=== PATIENT | female | born 1960 | race African-American/Black ===

== ENCOUNTER 2021-10-30 09:48 | Emergency (ER) | payer BC ==
[~2021-10-30] VITALS: Ht 170.2 cm; Wt 79.4 kg
[2021-10-30 10:41] VITALS: BP 118/96
[2021-10-30] MEDS ORDERED: NAPROSYN500 MG PO (11:34)
== END 2021-10-30 12:51 | disposition home or self-care (01) ==
LOC: ER 09:48
DX: U07.1 COVID-19 (principal); I10 Essential (primary) hypertension

== ENCOUNTER → 2021-11-19 | Outpatient (CLI) | payer BC ==
[~2021-11-19] MED LIST: CARVEDILOL12.5 MG PO; CATAPRES0.2 MG PO; LOSARTAN POTAS100 MG PO; MULTIVITAMINS1 EAC6 PO; NAPROSYN500 MG PO; TYLENOL325 M1 PO
[2021-11-19 11:08] LABS: HEMATOCRIT 39.3 % (37.0-47.0); HEMOGLOBIN 13.2 gm/dL (12.0-15.0); MCH 30.5 pg (26.0-34.0); MCHC 33.7 g/dL (28.0-37.0); MCV 90.5 fL (80.0-100.0); RBC 4.34 mil/uL (4.20-5.00); RDW 15.3 % (10.5-14.5); URINE BILIRUBIN NEGATIVE (Negative); URINE BLOOD NEGATIVE (Negative); URINE CLARITY CLEAR; URINE COLOR YELLOW; URINE GLUCOSE-RANDOM* NEGATIVE (Negative); URINE KETONES NEGATIVE (Negative); URINE LEUKOCYTES-REFLEX NEGATIVE (Negative); URINE NITRITE-REFLEX NEGATIVE (Negative); URINE PROTEIN (DIPSTICK) NEGATIVE (Negative); URINE SPECIFIC GRAVITY >= 1.030 (1.005-1.035); URINE UROBILINOGEN 0.2 E.U./dl (0.2-1.0); WBC 7.2 thou/uL (4.0-11.0)
[2021-11-19 11:21] LABS: CALCIUM 9.9 mg/dL (8.5-10.1); CREATININE 0.9 mg/dL (0.6-1.0); POTASSIUM 4.1 mmol/L (3.5-5.1)
[2021-11-19 11:23] LABS: PROTIME 10.9 Seconds (10.5-12.1)
--- NOTE | 2021-11-20 10:02 | EKG ---
[address] [place] [facility] [place] [address] ELECTROCARDIOGRAM REPORT Name: KEV RIVERA Room #: REG JUD Lopez#: [id number] Admission: 11/19/21 Attend Phys: Rubio Bella Discharge: Date of : 64 Report #: [id number] [facility] Test Date: 2021-11-19 Test Time: 10:59:32 Pat Name: KEV RIVERA Department: Room: Gender: F Locks Tender: SHE : 1960 Requested By: Honorio Matta Order Number: [id number] MD: Yoni Pitts Measurements Intervals [place] Rate: 87 P: 62 PA: 155 QRS: 23 QRSD: 68 T: 31 QT: 358 QTc: 431 Interpretive Statements Sinus rhythm Consider left atrial enlargement No previous ECG available for comparison Electronically Signed On 11-19-2021 12:46:33 [employer] by Yoni Pitts [email or web address] <ELECTRONICALLY SIGNED> By: Yoni Pitts MD, [facility] 11/19/21 1246 1059 1059 Yoni Pitts MD, FACC /EPI
== END ==
LOC: PAC 10:09
PROVIDERS: ATTEND Orthopaedic Surgery
DX: Z01.812 Encounter for preprocedural laboratory examination (principal); Z01.810 Encounter for preprocedural cardiovascular examination; M13.862 Other specified arthritis, left knee

== ENCOUNTER 2021-12-03 06:58 | Observation (INO) | payer BC ==
[~2021-12-03] VITALS: Ht 170.2 cm; Wt 78.0 kg
[2021-12-03 08:49] VITALS: BP 184/108
[2021-12-03 12:13] VITALS: BP 184/108
[2021-12-03 14:27] VITALS: BP 180/114
--- NOTE | 2021-12-03 20:16 | NUR ---
Patient arrive to the floor at 1335, alert and oriented x 4, pain level of a 2. Blood pressure is on the high side, notified the Doctor, and home medication resume. Patient use bsc, urinating well. Pain medication given prn, and tylenol given schedule. call light within reach, family at bedside.
--- NOTE | 2021-12-04 03:12 | NUR ---
PT IS A/O X4 AND IS UP WITH ASSISTANCE X1 TO THE BSC USING WALKER AND GB. PT REFUSED TO USE WALKER AND WAS UNABLE TO BEAR WT ON LEFT LEG POST SX. C/O PAIN. PRN PAIN MEDICATION GIVEN DIRECTED. FALL PRECAUTIONS IN PLACE, CALL LIGHT IS WITHIN REACH.
[2021-12-04 04:07] VITALS: BP 188/104
[2021-12-04 08:00] VITALS: BP 162/115
== END 2021-12-04 11:51 | disposition home or self-care (01) ==
LOC: OR → 4S 13:47 → OR 13:48 → 4S 13:48 → OR 15:45 → 4S 12-04 11:51
PROVIDERS: ADMIT Orthopaedic Surgery; ATTEND Orthopaedic Surgery
DX: M17.12 Unilateral primary osteoarthritis, left knee (principal); U07.1 COVID-19
CPT/HCPCS: 50010; 50101; 50415; 50954; 51130; 51225; 53000; 53078; 53365; 56527; 56528; 57095; 57103; 57110; 57180; 58637; 59024; 62110; 62900; 64039; 70005